=== PATIENT | male | born 1980 | race African-American/Black ===

== ENCOUNTER 2018-03-18 16:11 | Emergency (ER) | payer OTHER ==
[~2018-03-18] VITALS: Ht 175.3 cm; Wt 102.1 kg
[2018-03-18] MEDS ORDERED: JANUMET 50-1,01 EACH PO (17:24)
[2018-03-18] MEDS ORDERED: TOUJEO SOL300 UNIT/1 SC (17:24)
--- NOTE | 2018-03-18 17:26 | ED GENERAL ADULT ---
History of Present Illness General Chief Complaint: General Adult Stated Complaint: MED REFILL Source: patient Exam Limitations: no limitations Vital Signs & Intake/Output Vital Signs & Intake/Output Vital Signs Date Time Temp Pulse Resp B/P B/P Pulse O2 O2 Flow FiO2 Mean Ox Delivery Rate 03/18 1732 98.1 88 18 148/70 98 Room Air 03/18 1704 Room Air 03/18 1614 97.6 90 18 151/92 99 Room Air Room Air Allergies Coded Allergies: No Known Allergies (03/18/18) Reconcile Medications Insulin Glargine,Hum.rec.anlog (Toujeo Solostar) 300 UNIT/ML (1.5 ML) INSULN.PEN 8 UNITS SC 1/2 HR AC PRN diabetes Sitagliptin Phos/Metformin HCl (Janumet 50-1,000 MG Tablet) 50 MG-1,000 MG TABLET 1 TAB PO BID diabetes Triage Note: TRIAGE: 38 Y/O MALE PRESENTS FOR REFILL OF TOUJEO AND JANUMENT. Triage Nurses Notes Reviewed? yes Onset: Abrupt Duration: week(s): Timing: constant HPI: 38-year-old male with a history of diabetes presenting for medication refill on his prescriptions for Janumet and toujeo. Patient reports that he takes 1 tablet of janument BID and 8-10 units of toujeo before meals (sliding scale). He was previously getting prescriptions from his primary care provider in [facility]. He recently relocated to the area and has not yet established a primary care provider for his refills. He ran out of his medications 2-3 weeks ago. States that he has still been checking his glucose levels at home and they have stayed within the mid to high 100s as he has made dietary changes. Denies any fevers, dry mouth, polyuria, chest pain, shortness of breath, nausea, vomiting, abdominal pain, diarrhea. Past History Travel History Traveled to [place] past 21 day No Medical History Any Pertinent Medical History? see below for history Neurological: NONE EENT: NONE Cardiovascular: NONE Endocrine: diabetes Surgical History Surgical History: non-contributory Psychosocial History What is your primary language Brazilian Tobacco Use: Never used ETOH Use: denies use Illicit Drug Use: denies illicit drug use Family History Hx Contributory? No Review of Systems Review of Systems Constitutional: Reports: no symptoms. EENTM: Reports: no symptoms. Respiratory: Reports: no symptoms. Cardiovascular: Reports: no symptoms. GI: Reports: no symptoms. Genitourinary: Reports: no symptoms. Musculoskeletal: Reports: no symptoms. Skin: Reports: no symptoms. Neurological/Psychological: Reports: no symptoms. Hematologic/Endocrine: Reports: no symptoms. Immunologic/Allergic: Reports: no symptoms. All Other Systems: Reviewed and Negative Physical Exam Physical Exam General Appearance: well developed/nourished, no apparent distress, alert, awake Comments: Gen.: Well-nourished, well-developed, no acute distress. Head: Normocephalic, atraumatic. Eyes: Normal inspection bilaterally Ears: Normal inspection bilaterally Nose: Normal inspection Neck: Normal inspection Lungs: clear to auscultation bilaterally, normnal breath sounds Heart: regular rate and rhythm Abdomen: soft and non-tender Extremities: Normal inspection Neurologic: alert and oriented x3, steady gait Skin: warm and dry Psychiatric: Normal mood and affect, no apparent delusions or hallucinations, behavior appropriate Core Measures ACS in differential dx? No CVA/TIA Diagnosis: No Sepsis Present: No Sepsis Focused Exam Completed? No Progress Differential Diagnoses I considered the following diagnoses in my evaluation of the patient: [Diabetes versus medication refill, low concern for DKA versus HHS] Plan of Care: Patient was given a 30 day refill on his diabetes medications. Requested registration to arrange for a PMD. Counseled on supportive care and strict return precautions. Initial ED EKG: none Departure Departure Disposition: HOME OR SELF CARE Condition: Stable Clinical Impression Primary Impression: Diabetes Secondary Impressions: Medication refill Referrals: Patient Has No Primary Care Dr (PCP/Family) Additional Instructions: Take your Janumet and toujeo as prescribed. You will receive a phone call from [facility] practice to establish a primary care. Return to the emergency department for any new or worsening symptoms. Departure Forms: Customer Survey General Discharge Information Prescriptions: Current Visit Scripts Sitagliptin Phos/Metformin HCl (Janumet 50-1,000 MG Tablet) 1 TAB PO BID #60 TAB Insulin Glargine,Hum.rec.anlog (Toujeo Solostar) 8 UNITS SC 1/2 HR AC PRN diabetes #900 UNITS Critical Care Note Critical Care Note Critical Care Time: non-applicable
[2018-03-18 17:32] VITALS: BP 148/70
== END 2018-03-18 17:30 ==
LOC: ERH 16:11
DX: E11.9 Type 2 diabetes mellitus without complications (principal); Z76.0 Encounter for issue of repeat prescription
CPT/HCPCS: 99281